=== PATIENT | female | born 1955 | race Caucasian/White ===

== ENCOUNTER 2019-09-23 11:47 | Outpatient (CLI) | payer MEDICARE, SELFPAY ==
[2019-09-23 13:28] LABS: Prealbumin 23.5 mg/dL (17.6-36.0)
[2019-09-27 11:53] LABS: Endomysial Ab (IgA) Screen Negative (Negative)
[2019-09-28 21:56] LABS: Tissue Transglutaminase IgG Ab 3 U/mL (<6)
== END 2019-09-23 11:48 | disposition home or self-care (01) ==
PROVIDERS: PCP Family Medicine; Visit Provider Family Medicine
DX: K58.0 Irritable bowel syndrome with diarrhea (principal); K90.9 Intestinal malabsorption, unspecified
CPT/HCPCS: 36415; 83516; 84134; 86255

== ENCOUNTER 2019-10-06 08:30 | Outpatient (CLI) | payer MEDICARE, SELFPAY ==
--- NOTE | ~2019-10-06 | CT_ITS ---
EXAMINATION: CT abdomen pelvis w con DATE: 10/06/2019 09:01 INDICATION: Generalized abdominal pain. Irritable bowel syndrome. Diarrhea. TECHNIQUE: Computed tomography (CT) of the abdomen and pelvis was performed with 100 mL Omnipaque 350 intravenous contrast. Automated exposure control and iterative reconstruction technique were employe d. The dose-length product was 347.72 mGy-cm. COMPARISON: None. FINDINGS: The visualized portions of the lung bases demonstrate reticular and groundglass opacities w ith a peripheral predominance. There is mild bronchiectasis in right lower lobe. There is a pneumatoc kelsey in left lower lobe. There is an 8 mm nodule in right middle lobe. No pleural effusion. The heart size is normal. No pericardial effusion. The liver, gallbladder, spleen, pancreas, and adrenal glands are normal. There is cortical thinning of the kidneys. There is a 4 mm cyst in left kidney. There ar e no dilated loops of bowel. There are no dilated loops of bowel. The appendix is not visualized. The re are no pathologically enlarged lymph nodes. There is no free intraperitoneal fluid. There is sever e lower lumbar spondylosis. IMPRESSION: 1. 8 mm pulmonary nodule suspicious for primary bronchogenic carcinoma. Noncontrast chest CT is recom mended in 3 months. 2. Chronic interstitial lung disease in a pattern of nonspecific interstitial pneumonia (NSIP). Reviewed, dictated and finalized at location [facility]. IMPRESSION: 1. 8 mm pulmonary nodule suspicious for primary bronchogenic carcinoma. Noncont rast chest CT is recommended in 3 months. 2. Chronic interstitial lung disease in a pattern of nonspecific interstitial p neumonia (NSIP).
[2019-10-06 08:55] LABS: Estimated Glomerular Filt Rate 41
== END 2019-10-06 08:31 | disposition home or self-care (01) ==
LOC: ANHIMG 08:36
PROVIDERS: PCP Family Medicine; Visit Provider Family Medicine
DX: K58.0 Irritable bowel syndrome with diarrhea (principal); J84.9 Interstitial pulmonary disease, unspecified
CPT/HCPCS: 36415; 74177; Q9967

== ENCOUNTER → 2019-10-18 08:38 | Outpatient (CLI) | payer MEDICARE, SELFPAY ==
--- NOTE | ~2019-10-18 | CT_ITS ---
EXAMINATION: CT chest wo con DATE: 10/18/2019 08:57 INDICATION: Middle lobe lung nodule TECHNIQUE: Computed tomography (CT) of the chest was performed without intravenous contrast. Automate d exposure control and iterative reconstruction technique were employed. Exam dose: 197.67 mGy-cm to leeanna exam DLP. COMPARISON: None FINDINGS: There is an up to 1.7 cm spiculated density in the anterolateral aspect of the right upper lobe, abutting the pleura. This is suspicious for lung cancer. Differential diagnosis includes scar. PET/CT imaging is recommended for further evaluation. There is a smaller approximately 8 mm spiculated opacity of concern for lung cancer in the middle lob e. PET/CT imaging correlation will be helpful at this location as well. There is peripheral and basilar honeycombing and/or bronchiectasis and fibrotic change of the lungs c onsistent with usual interstitial pneumonia. Lingular calcified pulmonary granuloma consistent with old granulomatous disease. No pulmonary infiltrate or consolidation is noted otherwise. There is aortic and coronary artery and great vessel calcification. No thoracic aortic aneurysm is p resent. Normal heart size. No pericardial effusion. No hilar or mediastinal mass lesion or lymphadenopathy is detected. There is old pulmonary granulomat ous disease. Included upper abdominal structures are normal. There is particularly prominent degenerative disc disease in the lower cervical and upper thoracic sp ine. Degenerative spurring of the thoracic spine is noted elsewhere. No suspicious osteolytic or osteoblastic lesions are noted. IMPRESSION: Spiculated 17 and 8 mm opacities of the right upper lobe and middle lobe, of concern for lung cancer. PET/CT imaging is recommended for further evaluation Usual interstitial pneumonia Aortic, coronary and great vessel atherosclerosis Vaishali in Dr. Martinez's office was notified by telephone by Dr. Figueroa on 10/18/2019 at 1000 hours of th e findings suspicious for lung cancers of right upper and middle lobes and the PET/CT scan recommenda tion. Reviewed, dictated and finalized at [facility]. Reviewed, dictated and finalized at location [facility]. IMPRESSION: Spiculated 17 and 8 mm opacities of the right upper lobe and middl e lobe, of concern for lung cancer. PET/CT imaging is recommended for further evaluation Usual interstitial pneumonia Aortic, coronary and great vessel atherosclerosis Vaishali in Dr. Martinez's office was notified by telephone by Dr. Figueroa on 10/18/19 20 at 1000 hours of the findings suspicious for lung cancers of right upper and middle lobes and the PET/CT scan recommendation.
== END ==
PROVIDERS: PCP Family Medicine; Visit Provider Family Medicine
DX: R91.1 Solitary pulmonary nodule (principal); I25.10 Atherosclerotic heart disease of native coronary artery without angina pectoris; I70.0 Atherosclerosis of aorta
CPT/HCPCS: 71250

== ENCOUNTER 2019-11-01 13:48 | Outpatient (CLI) | payer MEDICARE, SELFPAY ==
--- NOTE | ~2019-11-01 | PE_ITS ---
EXAMINATION: PET skull to mid thigh DATE: 11/01/2019 15:26 INDICATION: Lung nodule. Abnormal CT. TECHNIQUE: Blood glucose level was not recorded. 10.497 mCi of 18-fluorodeoxyglucose (18-FDG) was adm inistered i.v. Low dose computed tomography (CT) images were acquired from the base of the brain to t he proximal thighs for attenuation correction and anatomic localization. Positron emission tomography (PET) images were acquired in the same distribution beginning 58 minutes after injection. Images inc luding fused PET/CT images were reconstructed in axial, coronal, and sagittal planes. Automated expos ure control technique was employed. The dose-length product was 396.33mGy-cm. COMPARISON: Chest CT dated 10/18/2019 FINDINGS: Head/neck: There is symmetric increased activity in the oral cavity, palatine tonsils, parotid glands, submandi bular glands, laryngeal muscles and ocular muscles without CT correlate, likely physiologic. No patho logically enlarged cervical lymphadenopathy or suspicious foci of increased FDG uptake in the visuali zed head or neck. Chest: Peripheral reticular opacities with subpleural honeycombing with lower lung predominance consistent w ith usual interstitial pneumonia (UIP) pattern chronic interstitial lung disease. Differential would include less likely nonspecific interstitial pneumonia (NSIP) pattern chronic interstitial lung disea se. New diffuse groundglass opacities with corresponding mild increased FDG uptake throughout the efren g bases in the bilateral lower lobes, lingula and right middle lobe which could represent atelectasis due to partial expiratory phase of imaging, pulmonary edema or pneumonia. Avid FDG uptake with maxim al SUV of 12.0 cm with a 2.4 x 1.5 cm spiculated nodule at the anterior right apex. No significant in terval change in a second smaller 10 mm spiculated nodule in the right middle lobe along the major fi ssure which is without discernible FDG uptake. Calcified nodule at the lingula consistent with old gr anulomatous disease. Heart size is normal. Coronary artery calcifications. No pericardial or pleural effusion. Vascular is normal in caliber. No pathologically enlarged or abnormal FDG avid thoracic lym phadenopathy. Abdomen/pelvis/proximal thighs: Physiologic renal accumulation and excretion of FDG activity in the kidneys, bladder and along portio ns of ureters. Normal degree and heterogenous pattern of increased uptake throughout the liver withou t radiologic correlate or dominant FDG avid lesion. The gallbladder, pancreas, spleen and bilateral a drenal glands are normal. Prominent FDG uptake scattered throughout the bowels without radiologic cor relate, also likely physiologic. No other abnormal foci of increased FDG uptake or pathologically enl arged lymphadenopathy in the abdomen, pelvis or proximal thighs. Musculoskeletal: Severe spondylosis centered about the cervicothoracic junction within the lower lumbar spine. Old hea led left femoral diaphyseal fracture with subtle tract from since removed intramedullary corey fixation . IMPRESSION: 1. Intense FDG uptake associated with a 2.4 x 1.5 cm spiculated nodule at the right apex concerning f or primary bronchogenic carcinoma. If patient is a biopsy candidate not requiring supplemental oxygen a baseline would recommend CT-guided percutaneous biopsy. 2. 10 mm indeterminate spiculated nodule in the right middle lobe which is without evident FDG uptake . While reassuring low-grade malignancy cannot be excluded and would recommend continued follow-up wi noncontrast chest CT in 3 months. 3. Chronic interstitial lung disease differential including UIP or less likely NSIP. 4. Diffuse groundglass opacity with associated mild FDG uptake at the lung bases most likely related to atelectasis due to expiratory phase of imaging with differential including pulmonary edema or pneu monia.
[2019-11-01 14:09] LABS: Glucose Point of Care 94 (65-105)
== END 2019-11-01 13:49 | disposition home or self-care (01) ==
PROVIDERS: PCP Family Medicine; Visit Provider Family Medicine
DX: R91.8 Other nonspecific abnormal finding of lung field (principal)
CPT/HCPCS: 78815; A9552

== ENCOUNTER → 2019-11-12 07:57 | Outpatient (REF) | payer MEDICARE, SELFPAY ==
[2019-11-12 18:01] LABS: SARS-CoV-2 RNA PCR Negative
== END ==
LOC: ANHCOVIDDT 07:57
PROVIDERS: PCP Family Medicine; Visit Provider Family Medicine
DX: Z01.812 Encounter for preprocedural laboratory examination (principal); Z20.828 Contact with and (suspected) exposure to other viral communicable diseases
CPT/HCPCS: 87635; C9803; U0003

== ENCOUNTER 2019-11-14 09:02 | Outpatient (CLI) | payer MEDICARE, SELFPAY ==
[2019-11-14] VITALS (9 sets, daily range): BP systolic 131–149; BP diastolic 64–74; PULSE 59–70; RESP 14–18; O2SAT 99–100
--- NOTE | ~2019-11-14 | XR_ITS ---
EXAMINATION: XR chest 1V DATE: 11/14/2019 12:40 INDICATION: Right lung upper lobe nodule status post percutaneous biopsy. TECHNIQUE: A single frontal view of the chest was obtained. COMPARISON: Chest CT 10/18/2019 FINDINGS: There is a nodule in right lung upper lobe. Calcified left lung nodules are consistent with old granulomatous disease. No pleural effusion or pneumothorax. The heart size is normal. IMPRESSION: 1. Right lung upper lobe nodule suspicious for primary bronchogenic carcinoma. Reviewed, dictated and finalized at location [facility].
--- NOTE | ~2019-11-14 | CT_ITS ---
EXAMINATION: CT biopsy lung DATE: 11/14/2019 12:41 INDICATION: Right lung upper lobe nodule TECHNIQUE: The procedure including the risks, benefits, and alternatives and possibility of chest tub e placement were discussed with the patient. Risks discussed included infection, approximately 1/20 r isk of symptomatic hemorrhage beyond mild hemoptysis, approximately 1/3 risk of pneumothorax, approxi mately 1/10 risk of pneumothorax severe enough to warrant chest tube placement, and rarely . The patient understood the risks and agreed to proceed. The patient was placed supine. The skin overlyi ng the right lung was prepped and draped in sterile fashion. Anesthetic was administered with 1% lid ocaine subcutaneously. A 19 gauge outer needle was advanced under CT guidance to the lesion of inter est. A 20 gauge core biopsy needle was then used to obtain 3 core biopsy specimens. The needle was re moved and the entry site was cleaned and dressed. The dose-length product was 245.26 mGy-cm. There w ere no immediate complications. FINDINGS: CT images demonstrate the outer needle tip adjacent to a 1.7 cm nodule in right lung upper lobe. Postbiopsy images demonstrate a small volume of hemorrhage around the nodule. IMPRESSION: 1. CT-guided core needle biopsy of a nodule in right lung upper lobe. Reviewed, dictated and finalized at location A.
--- NOTE | ~2019-11-14 | XR_ITS ---
EXAMINATION: XR chest 1V portable DATE: 11/14/2019 15:11 INDICATION: Right lung nodule status post percutaneous biopsy. TECHNIQUE: A single frontal view of the chest was obtained. COMPARISON: Chest single view at 1:25 PM FINDINGS: There is a nodule in right lung upper lobe. Calcified left lung nodules are consistent with old granulomatous disease. No pleural effusion or pneumothorax. The heart size is normal. IMPRESSION: 1. Nodule in right lung upper lobe suspicious for primary bronchogenic carcinoma. Reviewed, dictated and finalized at location A. IMPRESSION: 1. Nodule in right lung upper lobe suspicious for primary bronchogenic carcinom a.
--- NOTE | ~2019-11-14 | XR_ITS ---
EXAMINATION: XR chest 1V portable DATE: 11/14/2019 13:31 INDICATION: Right lung nodule status post percutaneous biopsy. TECHNIQUE: A single frontal view of the chest was obtained. COMPARISON: Chest single view at 12:19 PM FINDINGS: There is a nodule in right lung upper lobe. Calcified left lung nodules are consistent with old granulomatous disease. No pleural effusion or pneumothorax. The heart size is normal. IMPRESSION: 1. Nodule in right lung upper lobe suspicious for primary bronchogenic carcinoma. Reviewed, dictated and finalized at location [facility]. IMPRESSION: 1. Nodule in right lung upper lobe suspicious for primary bronchogenic carcinom a.
[2019-11-14 09:27] LABS: Platelet Count Result 220 k/mm3 (150-375)
--- NOTE | 2019-11-14 15:17 | SUR.PHASEII ---
1515 dr kahn called after last chest xray and it looks good, pt ok for discharge
== END 2019-11-14 15:30 | disposition home or self-care (01) ==
PROVIDERS: Radiology Diagnostic Radiology; PCP Family Medicine; Visit Provider Family Medicine
DX: R91.8 Other nonspecific abnormal finding of lung field (principal); C34.91 Malignant neoplasm of unspecified part of right bronchus or lung
CPT/HCPCS: 32405; 36415; 71045; 77012; 85049; 85610; 88305; 88313; 88342

== ENCOUNTER 2020-07-23 11:54 | Emergency (ER) | payer MEDICARE, SELFPAY ==
[2020-07-23 12:21] VITALS: BP 95/52; PULSE 93; RESP 18; TEMP 36.1; O2SAT 98
[2020-07-23 14:15] VITALS: BP 101/78; PULSE 93; RESP 17; O2SAT 100
[2020-07-23 14:36] VITALS: RESP 15
--- NOTE | 2020-07-23 14:47 | ED.GENADULT ---
HPI - General Adult General Chief complaint: Overdose Stated complaint: accidental overdose Time Seen by Provider: 07/23/20 12:49 Source: patient Mode of arrival: ambulatory Limitations: no limitations History of Present Illness HPI narrative: 65-year-old with a history of hypertension, hypothyroidism, depression here with complaints of accidentally oh overdosing on her morning medication patient states that it with OR accident denies being suicidal. She presently has no complaints. Onset (ago): hour(s) (4) Exacerbating factors: none Associated symptoms: denies other symptoms Review of Systems Review of Systems: All systems reviewed & are unremarkable except as noted in HPI and below Constitutional: Constitutional: Reports no additional constitutional complaints Eyes: Eyes: Reports no additional eye complaints ENT: Reports system reviewed and no additional complaints, except as documented Cardiovascular: Cardiovascular: Reports no additional cardiovascular complaints Respiratory: Respiratory: Reports no additional respiratory complaints Gastrointestinal: Gastrointestinal: Reports no additional gastrointestinal complaints Musculoskeletal: Musculoskeletal: Reports no additional musculoskeletal complaints Neurologic: Reports system reviewed and no additional complaints, except as documented Exam Narrative: Exam Narrative: GENERAL: Well-appearing, well-nourished, and in no acute distress. HEAD: Normocephalic, atraumatic. EYES: PERRLA and EOMI. NECK: Supple. CHEST: Clear to auscultation. No respiratory distress. HEART: Regular rate and rhythm. No murmur heard. Normal peripheral pulses. ABDOMEN: Soft, nontender, nondistended, normal active bowel sounds. EXTREMITIES: Normal range of motion. No edema. SKIN: Warm, dry, no rash. NEURO: No focal deficits. Alert and oriented x3. PSYCH: Normal mood and affect. Course Course Emergency Course: Patient states that she is feeling fine blood pressure has been stable advised her to not to take any more medication tonight, follow-up with the primary doctor. Vital Signs Vital signs: Vital Signs Temperature 36.1 C L 07/23/20 12:21 Pulse Rate 93 07/23/20 12:21 Respiratory Rate 18 07/23/20 12:21 Blood Pressure 95/52 L 07/23/20 12:21 Pulse Oximetry 98 07/23/20 12:21 Temperature 36.1 C L 07/23/20 12:21 Pulse Rate 93 07/23/20 12:21 Respiratory Rate 18 07/23/20 12:21 Blood Pressure 95/52 L 07/23/20 12:21 Pulse Oximetry 98 07/23/20 12:21 Medical Decision Making Vital Signs Vital Signs: Vital Signs Temperature 36.1 C L 07/23/20 12:21 Pulse Rate 93 07/23/20 12:21 Respiratory Rate 18 07/23/20 12:21 Blood Pressure 95/52 L 07/23/20 12:21 Pulse Oximetry 98 07/23/20 12:21 Temperature 36.1 C L 07/23/20 12:21 Pulse Rate 93 07/23/20 12:21 Respiratory Rate 18 07/23/20 12:21 Blood Pressure 95/52 L 07/23/20 12:21 Pulse Oximetry 98 07/23/20 12:21 Discharge Plan Discharge Clinical Impression: Accidental overdose Qualifiers: Encounter type: initial encounter Qualified Code(s): T50.901A - Poisoning by unspecified drugs, medicaments and biological substances, accidental (unintentional), initial encounter Patient Disposition: Home, Self-Care Condition: Stable Instructions: Antibiotic Form, Adult Overdose (ED) Follow-up/Referrals: Vaibhav Martinez MD [Primary Care Provider] - Time of Disposition: 14:49
== END 2020-07-23 15:18 | disposition home or self-care (01) ==
PROVIDERS: Emergency Provider Family Medicine; PCP Family Medicine
DX: T50.901A Poisoning by unspecified drugs, medicaments and biological substances, accidental (unintentional), initial encounter (principal); I10 Essential (primary) hypertension; E03.9 Hypothyroidism, unspecified
CPT/HCPCS: 99281